=== PATIENT | female | born 1930 | race Caucasian/White ===

== ENCOUNTER → 2016-12-16 | Outpatient (CLI) | payer OTHER ==
[~2016-12-16] MED LIST: AMIT25TA PO; AMOX1TAB64 PO; ANAS1TAB PO; ASPI-496 PO; ATOR40TA78 PO; ATOR80TA75 PO; CALC1CAP8 PO; CARV-39 PO; FLUD0.1T PO; HEPA5000 SQ; HUM100VI SQ-INSULIN; INSU100V8 SQ; LACT1CAP37 PO; LIRA0.6P2 SC; LIRA0.6P2 SQ; LISI-170 PO; LISI2.5T PO; MELO-184 PO; METO25TA35 PO; MULT-6 PO; MULT-658 PO; NPH,100V4 SQ-INSULIN; OMEG1CAP6 PO; OMEP-110 PO; OXYC5TAB3 PO; PIOGLITAZONE PO; PROP10DR2 EACHEYE; SYNJARDY PO; TRAM-28 PO; [UNRECOGNIZED DRUG - CODE] PO; pioglitazone PO
[2016-12-16 15:02] LABS: ASPARTATE AMINO TRANSFERASE 23 U/L (15-37); BLOOD UREA NITROGEN 27 mg/dL (7-18)
== END | disposition home or self-care (01) ==
LOC: STAR 13:52
PROVIDERS: ATTEND Internal Medicine Gastroenterology
DX: Z01.818 Encounter for other preprocedural examination (principal); R94.31 Abnormal electrocardiogram [ECG] [EKG]; K83.1 Obstruction of bile duct; R93.5 Abnormal findings on diagnostic imaging of other abdominal regions, including retroperitoneum
CPT/HCPCS: 36415; 80053; 93005

== ENCOUNTER 2016-12-24 05:31 | Day surgery (SDC) | payer OTHER ==
[~2016-12-24] VITALS: Ht 157.5 cm; Wt 57.4 kg
[~2016-12-24 05:31] MED LIST changes: +ATOR-2 PO; -ATOR80TA75 PO; -MELO-184 PO; +MELO15TA24 PO; -NPH,100V4 SQ-INSULIN; +NPH,100V5 SQ-INSULIN; -TRAM-28 PO; +TRAM-47 PO
[2016-12-24] MEDS ORDERED: LACTATED RINGERS 1,000 ML IV SCH (06:17)
[2016-12-24 06:20] VITALS: BP 114/72
[2016-12-24] MEDS ORDERED: SUCCINYLCHOLINE 20 MG/ML, 10ML ONE (07:29)
[2016-12-24] MEDS ORDERED: DEXAMETHASONE 4 MG/ML, 1ML ONE (07:29)
[2016-12-24] MEDS ORDERED: PROPOFOL 10 MG/ML, 20ML ONE (07:29)
[2016-12-24] MEDS ORDERED: ONDANSETRON 2MG/ML, 2ML ONE (07:29)
[2016-12-24] MEDS ORDERED: ACETAMINOPHEN 325 MG TABLET PO PRN (07:30)
[2016-12-24] MEDS ORDERED: OXYcodone 5 MG/5 ML ORAL.SOL UDC PO PRN (07:30)
[2016-12-24] MEDS ORDERED: FENTANYL PF 100 MCG/2ML IV PRN (07:30)
[2016-12-24] MEDS ORDERED: OMNIPAQUE 350 MG/ML, 50 ML BOTTLE ONE (09:00)
== END 2016-12-24 09:40 ==
LOC: OUT 05:31
PROVIDERS: ATTEND Internal Medicine Gastroenterology
DX: K83.1 Obstruction of bile duct (principal); K83.5 Biliary cyst; I10 Essential (primary) hypertension; E11.9 Type 2 diabetes mellitus without complications
CPT/HCPCS: 43261; 43275; 43277; 74328; 82962; 88104; 88112; C1725; C1769; J0330; J1100; J2405; J2704; J3010; J7120; Q9967

== ENCOUNTER 2017-01-01 17:03 | Inpatient (IN) | payer OTHER ==
[~2017-01-01] VITALS: Ht 157.5 cm; Wt 55.3 kg
[2017-01-01] MEDS ORDERED: SODIUM CHLORIDE 0.9% 1,000ML IVBOLUS ONE (17:30)
[2017-01-01] MEDS ORDERED: ONDANSETRON 2MG/ML, 2ML IVPush ONE (17:30)
[2017-01-01] MEDS ORDERED: SODIUM CHLORIDE FLUSH 10ML SYR IVF ONE (17:30)
[2017-01-01 18:08] LABS: HEMATOCRIT 35.2 % (34.6-47.8); HEMOGLOBIN 11.8 g/dL (11.7-16.4); WHITE BLOOD COUNT 8.6 x10^3/uL (3.4-10)
[2017-01-01 18:20] LABS: BLOOD UREA NITROGEN 24 mg/dL (7-18)
[2017-01-01] MEDS ORDERED: ONDANSETRON 2MG/ML, 2ML ONE (18:20)
[2017-01-01 18:23] LABS: ASPARTATE AMINO TRANSFERASE 29 U/L (15-37)
[2017-01-01] MEDS ORDERED: SODIUM CHLORIDE FLUSH 10ML SYR IVF PRN (20:00)
[2017-01-01] MEDS ORDERED: SODIUM CHLORIDE 0.9% 1,000 ML IV SCH (20:24)
[2017-01-01] MEDS ORDERED: morphine SULFATE 10 MG/ML, 1ML IVPush PRN (20:30)
[2017-01-01] MEDS ORDERED: CEFTRIAXONE PMX 2GM/50ML 50 ML IV SCH (20:30)
[2017-01-01] MEDS ORDERED: POLYETHYLENE GLYCOL 17 GM PACKET PO PRN (20:30)
[2017-01-01] MEDS ORDERED: HYDROcodone/APAP 5/325 TABLET PO PRN (20:30)
[2017-01-01] MEDS ORDERED: DOCUSATE 100 MG CAPSULE PO PRN (20:30)
[2017-01-01] MEDS ORDERED: ONDANSETRON 2MG/ML, 2ML IVPush PRN (20:30)
[2017-01-01] MEDS ORDERED: ACETAMINOPHEN 325 MG TABLET PO PRN (20:30)
[2017-01-01] MEDS ORDERED: ATORVASTATIN 80 MG TABLET PO SCH (21:00)
[2017-01-01] MEDS ORDERED: AMITRIPTYLINE 25 MG TABLET PO SCH (21:00)
[2017-01-01] MEDS ORDERED: CARVEDILOL 25 MG TABLET PO SCH (21:00)
[2017-01-01 22:59] VITALS: BP 86/59
[2017-01-02 01:29] VITALS: BP 80/59
[2017-01-02 01:43] VITALS: BP 84/56
[2017-01-02 05:11] LABS: BLOOD UREA NITROGEN 26 mg/dL (7-18)
[2017-01-02 06:36] VITALS: BP 95/63
[2017-01-02] MEDS ORDERED: ONDANSETRON 2MG/ML, 2ML IVPush PRN (08:30)
[2017-01-02] MEDS ORDERED: HYDROcodone/APAP 7.5-325MG/15ML UDC PO PRN (08:30)
[2017-01-02] MEDS ORDERED: ACETAMINOPHEN 325 MG TABLET PO PRN (08:30)
[2017-01-02] MEDS ORDERED: hydrALAzine 20 MG/ML, 1ML IV PRN (08:30)
[2017-01-02] MEDS ORDERED: METOPROLOL 1 MG/ML, 5ML IV PRN (08:30)
[2017-01-02] MEDS ORDERED: LABETALOL 5MG/ML, 20ML IV PRN (08:30)
[2017-01-02] MEDS ORDERED: EPHEDRINE 50 MG/ML, 1ML IVPush PRN (08:30)
[2017-01-02] MEDS ORDERED: FENTANYL PF 100 MCG/2ML IV PRN (08:30)
[2017-01-02] MEDS ORDERED: ALBUTEROL SULFATE 2.5 MG/3 ML NPPB PRN (08:30)
[2017-01-02] MEDS ORDERED: DOPAMINE/D5W PMX 400 MG/250 ML ONE (09:00)
[2017-01-02] MEDS ORDERED: OMNIPAQUE 350 MG/ML, 50 ML BOTTLE ONE (09:00)
[2017-01-02] MEDS ORDERED: SODIUM BICARB 4.2%, 10ML SYRINGE ONE (09:00)
[2017-01-02] MEDS ORDERED: VASOPRESSIN 20 UNIT/ML, 1ML ONE (09:00)
[2017-01-02] MEDS ORDERED: EPINEPHRINE SYRINGE 0.1 MG/ML, 10ML ONE (09:00)
[2017-01-02] MEDS ORDERED: SENNA/DOCUSATE TABLET PO SCH (09:00)
[2017-01-02] MEDS ORDERED: ANASTROZOLE 1 MG TABLET PO SCH (09:00)
[2017-01-02] MEDS ORDERED: FLUDROCORTISONE 0.1 MG TABLET PO SCH (09:00)
[2017-01-02] MEDS ORDERED: MAGNESIUM SULFATE PMX 2 GM/50 ML ONE (09:00)
[2017-01-02] MEDS ORDERED: ATROPINE 0.4 MG/ML, 1ML ONE (09:00)
== END 2017-01-02 12:43 | disposition expired | DRG 444 ==
LOC: ED 17:57 → SUATTDRO 19:43 → EDIP 19:49 → 3NW 22:33
PROVIDERS: ADMIT Family Medicine; ATTEND Family Medicine
DX: K83.1 Obstruction of bile duct (principal); N17.0 Acute kidney failure with tubular necrosis; E44.0 Moderate protein-calorie malnutrition; E11.9 Type 2 diabetes mellitus without complications; K76.89 Other specified diseases of liver; E86.0 Dehydration; Z68.22 Body mass index [BMI] 22.0-22.9, adult; M25.50 Pain in unspecified joint; E78.5 Hyperlipidemia, unspecified; I10 Essential (primary) hypertension; R00.1 Bradycardia, unspecified; Z53.8 Procedure and treatment not carried out for other reasons; I25.10 Atherosclerotic heart disease of native coronary artery without angina pectoris; K21.9 Gastro-esophageal reflux disease without esophagitis; R33.9 Retention of urine, unspecified; Z83.3 Family history of diabetes mellitus; Z85.3 Personal history of malignant neoplasm of breast; Z90.710 Acquired absence of both cervix and uterus
CPT/HCPCS: 36415; 76000; 76700; 80048; 80053; 81001; 82962; 83690; 85025; 86301; 87086; 87106; 92950; 93005; 96361; 96374; J0461; J0696; J1265; J2405; Q9967; J3475; J7030